=== PATIENT | male | born 1985 | race Caucasian/White ===

== ENCOUNTER → 2019-12-14 09:17 | Outpatient (CLI) | payer BC, MEDICAID, SELFPAY ==
[2013-03-04 22:53] VITALS: BMI 23.7
[2019-12-14 10:24] LABS: ALB/GLOB Ratio 1.2 RATIO (0.9-2.4); AST(SGOT) 27 U/L (15-37); Alanine Aminotransfer ALT/SGPT 47 U/L (16-61); Albumin, Serum 4.2 g/dL (3.2-5.0); Alkaline Phosphatase 66 U/L (45-117); Anion Gap 5 (5-15); BUN 10 mg/dL (7-18); Calcium,Total 8.9 mg/dL (8.5-10.1); Chloride 107 mmol/L (98-107); Cholesterol 167 mg/dL (200); EST Glomerular Filtration Rate 92 mL/min (>60); Est Glom Filt Rate - Afr Amer 111 mL/min (>60); Globulin 3.4 g/dL (2.2-4.2); Glucose 96 mg/dL (74-106); High Density Lipoprotein 36 mg/dL; Potassium 3.8 mmol/L (3.5-5.1); Protein, Total 7.6 g/dL (6.4-8.2); Sodium Level 140 mmol/L (136-145); Triglycerides 118 mg/dL; Very Low Density Lipoprotein 24 mg/dL (5-40)
== END ==
PROVIDERS: PCP Family Medicine; Referring Provider Family Medicine; Visit Provider Family Medicine
DX: Z00.00 Encounter for general adult medical examination without abnormal findings (principal); N52.9 Male erectile dysfunction, unspecified; Z13.220 Encounter for screening for lipoid disorders; R53.83 Other fatigue
CPT/HCPCS: 36415; 80053; 80061

== ENCOUNTER → 2019-12-28 09:16 | Outpatient (CLI) | payer BC, MEDICAID, SELFPAY ==
[2013-03-04 22:53] VITALS: BMI 23.7
[2019-12-31 13:26] LABS: Testosterone, % Free 2.95 % (1.50-4.20); Testosterone, Total 512 ng/dL (264-916)
== END ==
PROVIDERS: PCP Family Medicine; Referring Provider Family Medicine; Visit Provider Family Medicine
DX: Z00.00 Encounter for general adult medical examination without abnormal findings (principal); Z13.220 Encounter for screening for lipoid disorders; N52.9 Male erectile dysfunction, unspecified; R53.83 Other fatigue
CPT/HCPCS: 36415; 84402; 84403

== ENCOUNTER 2020-01-02 07:49 | Outpatient (RCR) | payer BC, MEDICAID, SELFPAY ==
[2020-01-01 11:05] VITALS: BMI 26.8
--- NOTE | 2020-01-06 12:43 | HP.PTEVAL_ITS ---
Patient's Visit Information CONSUELO ALMAZAN is a 34 year old M referred to Physical Therapy by ANTOINETTE Murphy with a diagnosis of Lumbar strain. Date of Evaluation: 01/02/20 Physical Therapist: Marco A Yu DPT - Visit Plan Frequency: 3x /Week Duration: 4 Weeks Plan: Start with gentle ROM into directional preference (possible flexion), started on sligth extension. Progress to core stability in neutral spine as able. Add in body mechanics to reduce risk for future injury. - Subjective Pt. is here today for his initial evaluation with diagnosis of strain of his low back. Pt. reprots hurting in back earlier this week when he was picking up his dog to put in bath tub to wash. Pt. reports feeling some pain then, but really got worse later than day and the next. Pt. has been off work for a few days, but has been mostly sittiing/lauing on the couch. No imaging as of yet. Pt. has been taking muscle relaxors with slight reduction in symptoms. He reprots no radiating pain, but pain is mosltly in the L side of lumbar spine/multifidus region. Pt. has no leg pain or N/T. Increases pain: sitting, lifting, bending. Decreases Pain: walking (slightly), lying down. Pt. is hopeful to return to work and all recreational activities without limitations. - Pain L side of lumbar spine Pain Intensity (Out of 10): 6 Pain Intensity Range: 3, 8 - Objective POSTURE: Pt. has slight flexed posture with R lateral lean (slight). Pt. has equal iliac crest heights. PALPATION: Pt. has tenderness along L3-S1 spinous process, no hypomobility noted. Pt. has incerased pain at L paraspinals, and L multifidus region. NEURO: pt. has normal DTR of BLEs, normal sensation. ROM: LUMBAR SPINE: flexion min/mod loss increase NW, extension max loss increase NE, SB R- min loss increase NW, SB L min loss NE, rotation min loss to L increase NW, rotation R NE nil loss. Pt. has tight HS bilat. Normal hip ROM throughout. MMT: Pt. no myotomal weaknesses 5/5 throughout. GAIT: Pt. is very guarded with his posture during gait. Pt. has minimal arm swing, no trunk movement, sligth flexed posture. STAIRS: increase NW with flexed posture noted, methodical with his pattern. - Special Tests L/S Slump test left side: Positive L/S Slump test right side: Negative L/S Left Straight Leg Raise: Negative L/S Right Straight Leg Raise: Negative Lumbar Standing: Flexion - Mechanical Response: No effect Lumbar Standing: Flexion - Symptoms During Testing: Increases Lumbar Standing: Flexion - Symptoms After Testing: No worse Lumbar Standing: Extension - Mechanical Response: No effect Lumbar Standing: Extension - Symptoms During Testing: Increases Lumbar Standing: Extension - Symptoms After Testing: Worse Lumbar Lying: Flexion - Mechanical Response: No effect Lumbar Lying: Flexion - Symptoms During Testing: Decreases Lumbar Lying: Flexion - Symptoms After Testing: No better Lumbar Lying: Extension - Mechanical Response: No effect Lumbar Lying: Extension - Symptoms During Testing: Increases Lumbar Lying: Extension - Symptoms After Testing: Worse Lumbar Static: Slouched Sit - Mechanical Response: No effect Lumbar Static: Slouched Sit - Symptoms During Testing: No effect Lumbar Static: Slouched Sit - Symptoms After Testing: No effect Lumbar Static: Sitting Erect - Mechanical Response: No effect Lumbar Static: Sitting Erect - Symptoms During Testing: Increases Lumbar Static: Sitting Erect - Symptoms After Testing: Worse Lumbar Static:Lying Prone in Extension - Mechanical Response: No effect Lumbar Static: Lying Prone in Extension - Sx During Testing: Increases Lumbar Static: Lying Prone in Extension - Sx After Testing: Worse - Goals Goal 1:: LTG: Pt. to be I with HEP. Goal Time Frame: 4-6 Weeks Goal 2:: STG: Pt. to sleep throughout the night without increase in symptoms. Goal Time Frame: 2-4 Weeks Goal 3:: STG: Pt. to resume all work related activities without increase in symptoms. Goal Time Frame: 2-4 Weeks Goal 4:: STG: pt. to have full lumbar ROM without increase in symptoms. Goal Time Frame: 2-4 Weeks Goal 5:: LTG: Pt. to be educated in prophalaxis and body mechanics to reudce risk for future injury. Goal Time Frame: 4-6 Weeks - Rehabilitation Potential Physical Therapy Diagnosis: Pt. has signs and symptoms consistent with lumbar muscle strain. Pt. has no radicular symptoms. He has very lmited ROM, especially with extension. Pt. would benefit from PT to work on ROM progressing back to normal tolerance of functional movement. Rehabilitation Potential: Excellent - Anticipated Interventions Patient/Client Instruction: Educate patient on: Condition, Plan of Care, Risk Factors, Benefits of Fitness Program For the Purpose of:: To foster healthy habits, To improve decision making, To facilitate caregiver knowledge, To improve self management, To prevent re- injury, To improve ability to perform tasks related to life management, To improve tolerance to ADL's Therapeutic Exercise to Include: Strength training, Power training, Body mechanics, Postural training, Flexibilty training, Passive ROM, Active ROM, Dynamic Lumbar Stabilization, Ajit Exercises For the Purpose of:: To decrease pain, To decrease swelling/inflammation, To increase ROM, To improve nutrient delivery to tissue, To improve muscle performance and motor function, To improve ability to perform ADL's, To improve ability of physical actions for home/community/work/leisure, To improve gait and locomotor functions, To improve health of tissue, To decrease soft tissue restriction, To increase flexibility/ROM, To improve endurance Manual Therapy Techniques to Include: Mobilization, Passive ROM, Functional dry needling, Soft tissue mobilization For the Purpose of:: To decrease pain, To decrease swelling/inflammation, To increase ROM, To improve nutrient delivery to tissue, To increase oxygenation perfusion IF ES: Yes Cryotherapy (ice pack, ice massage): Yes Thermo therapy (hot pack): Yes Ultrasound (thermal/non thermal): Yes For the Purpose of:: To decrease pain, To decrease swelling/inflammation, To increase ROM Thank you for the opportunity to evaluate your patient. For Medicare and Medicare HMO plans, please review the plan of care and approve it. It will need to be FAXED BACK to us at [phone] for Medicare purposes. For Medicare only, by signing this I certify the plan of care. Please let me know if there are questions or concerns regarding this plan of care. Physician Signature: Date:__
--- NOTE | 2020-01-08 12:36 | HP.PT.NRP ---
CONSUELO ALMAZAN was seen in my office for initial evaluation on 01/02/20. The following Plan of Care was established for this patient: Initial Frequency: 3x /Week Initial Duration: 4 Weeks Patient/Client Instruction: Educate patient on: Condition, Plan of Care, Risk Factors, Benefits of Fitness Program For the Purpose of:: To foster healthy habits, To improve decision making, To facilitate caregiver knowledge, To improve self management, To prevent re-injury, To improve ability to perform tasks related to life management, To improve tolerance to ADL's Therapeutic Exercise to Include: Strength training, Power training, Body mechanics, Postural training, Flexibilty training, Passive ROM, Active ROM, Dynamic Lumbar Stabilization, Ajit Exercises For the Purpose of:: To decrease pain, To decrease swelling/inflammation, To increase ROM, To improve nutrient delivery to tissue, To improve muscle performance and motor function, To improve ability to perform ADL's, To improve ability of physical actions for home/community/work/leisure, To improve gait and locomotor functions, To improve health of tissue, To decrease soft tissue restriction, To increase flexibility/ROM, To improve endurance Manual Therapy Techniques to Include: Mobilization, Passive ROM, Functional dry needling, Soft tissue mobilization For the Purpose of:: To decrease pain, To decrease swelling/inflammation, To increase ROM, To improve nutrient delivery to tissue, To increase oxygenation perfusion IF ES: Yes Cryotherapy (ice pack, ice massage): Yes Thermo therapy (hot pack): Yes Ultrasound (thermal/non thermal): Yes For the Purpose of:: To decrease pain, To decrease swelling/inflammation, To increase ROM This patient was last seen in our office 01/02/20. Pertinent comments regarding their Physical therapy will appear below: Pt. was seen for his acute low back pain. Pt. is doing much better and reports no longer needing PT. Pt. will be DC from PT at this point in time. At this point I will be discontinuing this patient from physical therapy. I would be happy to see this patient again in the future if found appropriate by the physician. Thank you! Marco A Yu, HOWIE
== END 2020-01-02 19:00 | disposition home or self-care (01) ==
LOC: PT 07:49
PROVIDERS: Referring Provider Physician Assistant; Visit Provider Physician Assistant
DX: S39.012D Strain of muscle, fascia and tendon of lower back, subsequent encounter (principal)
CPT/HCPCS: 97161